=== PATIENT | male | born 1955 | race Caucasian/White ===

== ENCOUNTER 2018-08-08 23:16 | Observation (INO) | payer OTHER, SELFPAY ==
[2018-08-08 23:19] VITALS: BP 154/85; PULSE 100; RESP 22; TEMP 37.1; O2SAT 95
--- NOTE | 2018-08-08 23:29 | W.ED.GENAD ---
Discharge Plan Disposition Patient Disposition: [facility] INPATIENT Condition: Fair Discharge Details Chief Complaint: Dizzy/Sync Clinical Impression: Double vision, Vertigo Primary Care Provider: Marylin Coleman ED Provider: Brent Menon and New Rx's Prescriptions: No Action aspirin [Aspir-81] 81 MG tablet,delayed release (DR/EC) 81 mg PO DAILY RF: 0 amlodipine 5 MG tablet 5 mg PO DAILY Qty: 90 RF: 3 Medical Decision Making Patient is a 63-year-old male with history of hypertension presenting with acute onset of double vision and vertigo. He has an NIH scale of 1 based on gaze though he has full horizontal movement he has disconjugate gaze. EKG, head CT, brain and neck CTA, laboratory studies all ordered. Call placed to transfer center at [facility] to discuss with neurology. Preliminary discussion held. Waiting for CT results and call back from neurology attending and resident. Patient laboratory studies are unremarkable. Head CT read preliminary by radiology as possible left occipital infarct. CTA of the brain read as moderate to severe stenosis throughout the cerebral arteries of the brain. Internal carotid, vertebral artery, basilar artery are open. There are no occlusions or aneurysms noted. Neck CTA is normal as well. Case discussed with neurology attending, Dr. Barrios, at [facility]. He agrees with an NIH scale of 1. He also agrees with no TPA. Suspects that this will be a lacunar infarct likely in the midbrain. Recommends admission for neuro checks, MRI of the brain, echo of the heart. Does not feel that he requires emergent transfer to [facility] at this time. Patient repeat neuro exam after CT scans is unchanged. Case discussed with our hospitalist. Patient will be admitted here for further management and evaluation. Patient aware of discussion with neurology at [facility] as well as choice to admit here and complete workup. Patient is given full dose aspirin. Lab Data Lab results reviewed: Yes I reviewed the patient's lab results. ECG Data Attestation: I personally reviewed and interpreted this ECG (s) as follows: Prior ECG tracings: not available for review Interpretation: Normal sinus rhythm at a rate of 94 with normal axis and intervals and normal ST segments. HPI General Mode of arrival: ambulatory. Date/Time Provider Initiated Documentation: 08/08/18 23:27. Limitations to Documentation: no limitations. Information obtained by: patient. HPI Narrative: Patient presents to ED with onset of vertigo and double vision at 10:30 PM. He was able to drive in on his own by covering one of his eyes. With his eye covered he only sees one and has less dizziness. He denies headache. He is a daily drinker. He is a former smoker. He does have a history of hypertension. He has no other neurologic symptoms. Related Data Home Medications Medication Instructions Recorded Confirmed aspirin [Aspir 81] 81 mg PO DAILY tab 01/26/13 08/08/18 amlodipine 5 mg PO DAILY #90 tab-cap 06/02/18 08/08/18 Previous Rx's Medication Instructions Recorded amlodipine 5 mg PO DAILY #90 tab-cap 06/02/18 Allergies Allergy/AdvReac Type Severity Reaction Status Date / Time No Known Allergies Allergy Unverified 08/08/18 23:22 General Stated Complaint: Dizzy/Sync HARPREET: 3 Review of Systems Constitutional Denies chills, Denies fever(s), Denies headache(s) and Denies weakness Eyes Denies blurry vision, Reports diplopia, Denies loss of vision, Denies other visual disturbances and Denies eye pain ENT Reports vertigo, Denies otalgia, Denies facial pain, Denies headache(s), Denies neck pain and Denies sore throat Cardiovascular Denies chest pain, Denies diaphoresis, Denies syncope, Denies rapid heart rate, Denies lightheadedness, Denies palpitations and Denies dyspnea Respiratory Denies cough and Denies dyspnea Gastrointestinal Denies abdominal pain, Denies diarrhea, Denies nausea and Denies vomiting Musculoskeletal Denies abnormal gait, Denies back pain, Denies arthralgias, Denies neck pain, Denies numbness and Denies tingling Integumentary/Breasts Denies rash Neurologic Denies abnormal speech, Denies abnormal gait, Reports vertigo, Denies syncope, Denies headache(s), Denies focal weakness, Denies loss of vision, Denies numbness, Denies sensory deficit, Denies tingling and Denies weakness Endocrine Denies palpitations [facility] Family History Mother Hypertensive disorder, systemic arterial Heart disease Grandfather Personal history of malignant neoplasm Father Personal history of malignant neoplasm Medical History HTN (hypertension) (Chronic) Social History Smoking/Tobacco Use Status: Former Tobacco Use Surgical History Colonoscopy - IV Sedation (06/02/15) Skin Cancer Removal Exam Const General: cooperative, healthy appearing, comfortable and no acute distress Orientation: alert and oriented x3 HENMT Head: normocephalic and atraumatic Eyes Pupils: PERRL EOM: EOM intact bilaterally (While patient extraocular muscles are intact he has disconjugate gaze with right eye turning inward and upward.), movement deficit and No nystagmus Neck Neck: normal visual inspection and supple Carotids: bruit (versus transmitted murmur) on the right Resp Effort & Inspection: normal respiratory effort Auscultation: clear to auscultation bilaterally Cardio Rate: regular rate Rhythm: regular rhythm Heart Sounds: murmur systolic GI Palpation: soft and nontender Skin Rashes: no rashes Neuro General: alert, oriented x3, gait normal, no focal motor deficits and CN's II-XI intact bilaterally Cranial Nerves: no nystagmus and no nystagmus Cognition: normal cognition Speech: speech normal Sensory Exam: no sensory deficits noted Extrem General: normal to inspection and full ROM Course Vital Signs Temperature 98.8 F 08/08/18 23:19 Pulse 100 H 08/08/18 23:19 Respiratory Rate 22 08/08/18 23:19 Blood Pressure 154/85 H 08/08/18 23:19 Pulse Oximetry 95 08/08/18 23:19 Temperature 98.8 F 08/08/18 23:19 Temperature Source Skin 08/08/18 23:19 Pulse 100 H 08/08/18 23:19 Respiratory Rate 22 08/08/18 23:19 Respiratory Effort Non-Labored 08/08/18 23:20 Blood Pressure 154/85 H 08/08/18 23:19 Blood Pressure Position Sitting 08/08/18 23:19 Pulse Oximetry 95 08/08/18 23:19 Oxygen Delivery Method Room Air 08/08/18 23:19 Oxygen Flow Rate 0 08/08/18 23:19 Pain Level 0 08/08/18 23:19 Critical Care Time Critical Care Time: Yes Total Critical Care Time: 60 Attestation: stroke evaluation
--- NOTE | 2018-08-08 23:35 | DI.CT_ITS ---
SYMPTOM/DIAGNOSIS: DOUBLE VISION, VERTIGO NONCONTRAST HEAD CT: No priors for comparison. There is a question of loss of the ott white matter differentiation in the left occipital lobe. A developing infarct cannot be excluded. No intracranial hemorrhage, acute midline shift or mass effect is identified. The ventricles are intact. The basilar cisterns are patent. The ventricles and sulci are consistent with the patient's age. The visualized paranasal sinuses are clear. The mastoid air cells are well pneumatized. The calvarium appears intact. IMPRESSION: Subtle area of decreased attenuation in the left occipital lobe. The possibility of a developing acute infarct cannot be excluded. Follow up with an MRI or repeat CT scan of the head is recommended. CTA OF HEAD AND NECK: CT angiography was performed with multi slice acquisition and multi planar and 3D reconstruction. NECK: Routine post contrast examination was performed. The common carotid arteries are unremarkable without occlusion, dissection, aneurysm or significant stenosis. The external carotid arteries are unremarkable. No evidence of occlusion, dissection, significant stenosis or aneurysm. The internal carotid arteries are unremarkable. No evidence of significant stenosis, occlusion or aneurysm. No dissection is rubia. The vertebral arteries are patent. There is a dominant left vertebral artery. No significant stenosis, occlusion or aneurysm is seen. The lung apices are clear. Moderate degenerative changes are seen in the spine. IMPRESSION: Normal CTA of the neck. HEAD: Minimal calcium is seen in the cavernous portion of the left internal carotid artery. The internal carotid arteries show no significant stenosis, occlusion or aneurysm. The anterior cerebral arteries are patent. No occlusion or aneurysm is identified. There may be mild areas of narrowing in the distal segments of the anterior cerebral arteries. The middle cerebral arteries show no occlusion or aneurysm. There may be mild areas of narrowing in the peripheral branches. The posterior cerebral arteries show no occlusion or aneurysm. There may be mild narrowing in the peripheral branches. The vertebral arteries are unremarkable without significant stenosis , aneurysm or occlusion. There is a dominant left vertebral artery. The basilar artery is unremarkable. IMPRESSION: No evidence of occlusion or aneurysm on this examination.
[2018-08-08 23:44] VITALS: RESP 22
[2018-08-08 23:45] LABS: HCT 43.1 % (40.0-50.0); HGB 15.4 g/dL (13.5-17.5); Mean Corp. HGB Concentration 35.7 g/dL (32.0-36.0); Mean Corpuscular Hemoglobin 30.9 pg (27.0-33.0); Mean Corpuscular Volume 86.5 fL (80-95); Mean Platelet Volume 9.3 fL (8.0-11.0); Platelet Count 266 x1000/uL (130-400); RBC 4.98 m/cumm (4.50-6.00); RBC Distribution Width 12.9 % (11.8-14.1)
--- NOTE | 2018-08-08 23:46 | ED.GENADUL_ITS ---
Discharge Plan Disposition Patient Disposition: [facility] INPATIENT Condition: Fair Discharge Details Chief Complaint: Dizzy/Sync Clinical Impression: Double vision, Vertigo Primary Care Provider: Marylin Coleman ED Provider: Brent Menon and New Rx's Prescriptions: No Action aspirin [Aspir-81] 81 MG tablet,delayed release (DR/EC) 81 mg PO DAILY RF: 0 amlodipine 5 MG tablet 5 mg PO DAILY Qty: 90 RF: 3 Medical Decision Making Patient is a 63-year-old male with history of hypertension presenting with acute onset of double vision and vertigo. He has an NIH scale of 1 based on gaze though he has full horizontal movement he has disconjugate gaze. EKG, head CT, brain and neck CTA, laboratory studies all ordered. Call placed to transfer center at [facility] to discuss with neurology. Preliminary discussion held. Waiting for CT results and call back from neurology attending and resident. Patient laboratory studies are unremarkable. Head CT read preliminary by radiology as possible left occipital infarct. CTA of the brain read as moderate to severe stenosis throughout the cerebral arteries of the brain. Internal carotid, vertebral artery, basilar artery are open. There are no occlusions or aneurysms noted. Neck CTA is normal as well. Case discussed with neurology attending, Dr. Barrios, at [facility]. He agrees with an NIH scale of 1. He also agrees with no TPA. Suspects that this will be a lacunar infarct likely in the midbrain. Recommends admission for neuro checks, MRI of the brain, echo of the heart. Does not feel that he requires emergent transfer to [facility] at this time. Patient repeat neuro exam after CT scans is unchanged. Case discussed with our hospitalist. Patient will be admitted here for further management and evaluation. Patient aware of discussion with neurology at [facility] as well as choice to admit here and complete workup. Patient is given full dose aspirin. Lab Data Lab results reviewed: Yes I reviewed the patient's lab results. ECG Data Attestation: I personally reviewed and interpreted this ECG (s) as follows: Prior ECG tracings: not available for review Interpretation: Normal sinus rhythm at a rate of 94 with normal axis and intervals and normal ST segments. HPI General Mode of arrival: ambulatory . Date/Time Provider Initiated Documentation: 08/08/18 23:27 . Limitations to Documentation: no limitations . Information obtained by: patient . HPI Narrative: Patient presents to ED with onset of vertigo and double vision at 10:30 PM. He was able to drive in on his own by covering one of his eyes. With his eye covered he only sees one and has less dizziness. He denies headache. He is a daily drinker. He is a former smoker. He does have a history of hypertension. He has no other neurologic symptoms. Related Data Home Medications Medication Instructions Recorded Confirmed aspirin [Aspir 81] 81 mg PO DAILY tab 01/26/13 08/08/18 amlodipine 5 mg PO DAILY #90 tab-cap 06/02/18 08/08/18 Previous Rx's Medication Instructions Recorded amlodipine 5 mg PO DAILY #90 tab-cap 06/02/18 Allergies Allergy/AdvReac Type Severity Reaction Status Date / Time No Known Allergies Allergy Unverified 08/08/18 23:22 General Stated Complaint: Dizzy/Sync HARPREET: 3 Review of Systems Constitutional Denies chills, Denies fever(s), Denies headache(s) and Denies weakness Eyes Denies blurry vision, Reports diplopia, Denies loss of vision, Denies other visual disturbances and Denies eye pain ENT Reports vertigo, Denies otalgia, Denies facial pain, Denies headache(s), Denies neck pain and Denies sore throat Cardiovascular Denies chest pain, Denies diaphoresis, Denies syncope, Denies rapid heart rate, Denies lightheadedness, Denies palpitations and Denies dyspnea Respiratory Denies cough and Denies dyspnea Gastrointestinal Denies abdominal pain, Denies diarrhea, Denies nausea and Denies vomiting Musculoskeletal Denies abnormal gait, Denies back pain, Denies arthralgias, Denies neck pain, Denies numbness and Denies tingling Integumentary/Breasts Denies rash Neurologic Denies abnormal speech, Denies abnormal gait, Reports vertigo, Denies syncope, Denies headache(s), Denies focal weakness, Denies loss of vision, Denies numbness, Denies sensory deficit, Denies tingling and Denies weakness Endocrine Denies palpitations [facility] Family History Mother Hypertensive disorder, systemic arterial Heart disease Grandfather Personal history of malignant neoplasm Father Personal history of malignant neoplasm Medical History HTN (hypertension) (Chronic) Social History Smoking/Tobacco Use Status: Former Tobacco Use Surgical History Colonoscopy - IV Sedation (06/02/15) Skin Cancer Removal Exam Const General: cooperative, healthy appearing, comfortable and no acute distress Orientation: alert and oriented x3 HENMT Head: normocephalic and atraumatic Eyes Pupils: PERRL EOM: EOM intact bilaterally (While patient extraocular muscles are intact he has disconjugate gaze with right eye turning inward and upward.), movement deficit and No nystagmus Neck Neck: normal visual inspection and supple Carotids: bruit (versus transmitted murmur) on the right Resp Effort & Inspection: normal respiratory effort Auscultation: clear to auscultation bilaterally Cardio Rate: regular rate Rhythm: regular rhythm Heart Sounds: murmur systolic GI Palpation: soft and nontender Skin Rashes: no rashes Neuro General: alert, oriented x3, gait normal, no focal motor deficits and CN's II- XI intact bilaterally Cranial Nerves: no nystagmus and no nystagmus Cognition: normal cognition Speech: speech normal Sensory Exam: no sensory deficits noted Extrem General: normal to inspection and full ROM Course Vital Signs Temperature 98.8 F 08/08/18 23:19 Pulse 100 H 08/08/18 23:19 Respiratory Rate 22 08/08/18 23:19 Blood Pressure 154/85 H 08/08/18 23:19 Pulse Oximetry 95 08/08/18 23:19 Temperature 98.8 F 08/08/18 23:19 Temperature Source Skin 08/08/18 23:19 Pulse 100 H 08/08/18 23:19 Respiratory Rate 22 08/08/18 23:19 Respiratory Effort Non-Labored 08/08/18 23:20 Blood Pressure 154/85 H 08/08/18 23:19 Blood Pressure Position Sitting 08/08/18 23:19 Pulse Oximetry 95 08/08/18 23:19 Oxygen Delivery Method Room Air 08/08/18 23:19 Oxygen Flow Rate 0 08/08/18 23:19 Pain Level 0 08/08/18 23:19 Critical Care Time Critical Care Time: Yes Total Critical Care Time: 60 Attestation: stroke evaluation
[2018-08-08 23:54] LABS: BUN 23 mg/dL (7-18); CREATININE 1.19 mg/dL (0.70-1.30); Calcium 8.8 mg/dL (8.5-10.1); Chloride 104 mmol/L (98-107); Glucose 152 mg/dL (70-100); Potassium 3.2 mmol/L (3.5-5.1); Sodium 141 mmol/L (136-145)
[2018-08-09] VITALS (32 sets, daily range): BP systolic 129–158; BP diastolic 77–98; PULSE 58–99; RESP 11–28; TEMP 36.5–37.1; O2SAT 92–98
[2018-08-09 00:02] LABS: ETHANOL BLOOD < 3.0 mg/dL (<3)
[2018-08-09] MEDS: Normal Saline Flush 10 ML SYR IVP (00:05)
[2018-08-09] MEDS: Normal Saline 1,000 ML 125 ML IV (00:08)
[2018-08-09 00:14] LABS: PTT Activated 22.3 sec (21.0-31.4); Prothrombin Time 9.6 sec (9.3-10.8)
--- NOTE | 2018-08-09 00:20 | DI.VRAD_ITS ---
EXAM: CT Head Without Intravenous Contrast EXAM DATE/TIME: 08/08/2018 11:38 PM CLINICAL HISTORY: 63 years old, male; Signs and symptoms; Visual disturbance; Patient HX: Double vision TECHNIQUE: Axial computed tomography images of the head/brain without intravenous contrast. All CT scans at this facility use at least one of these dose optimization techniques: automated exposure control; mA and/or kV adjustment per patient size (includes targeted exams where dose is matched to clinical indication); or iterative reconstruction. Coronal and sagittal reformatted images were created and reviewed. COMPARISON: No relevant prior studies available. FINDINGS: Brain: There is loss of ott-white differentiation in the left occipital lobe concerning for developing acute infarct. Age no hemorrhage. Ventricles: Normal. No ventriculomegaly. Bones/joints: Normal. No acute fracture. Sinuses: Normal as visualized. No acute sinusitis. Mastoid air cells: Normal as visualized. No mastoid effusion. Soft tissues: Normal. IMPRESSION: Loss of ott-white differentiation in the left occipital lobe concerning for developing acute infarct. Dictated and Authenticated by: Gamaliel Nunes MD. Ordering:WAYNE ATWOOD MD
[2018-08-09] MEDS: Omnipaque 350 MG/ML 100 ML BTL IJ (00:39)
--- NOTE | 2018-08-09 00:43 | DI.VRAD_ITS ---
EXAM: CT Angiography Head With Intravenous Contrast CLINICAL HISTORY: 63 years old, male; Signs and symptoms; Visual disturbance; Other visual defect; Patient HX: Double vision, vertigo TECHNIQUE: Axial computed tomographic angiography images of the head with intravenous contrast using CT angiography protocol. All CT scans at this facility use at least one of these dose optimization techniques: automated exposure control; mA and/or kV adjustment per patient size (includes targeted exams where dose is matched to clinical indication); or iterative reconstruction. MIP reconstructed images were created and reviewed. CONTRAST: 85 mL of OMnipaque 350 administered intravenously. COMPARISON: No relevant prior studies available. FINDINGS: Right internal carotid artery: No acute findings. Intracranial segment is patent with no significant stenosis. No aneurysm. Right anterior cerebral artery: Multifocal moderate stenosis of the A2, A3 segments of the bilateral anterior cerebral arteries. No aneurysm. No occlusion. Right middle cerebral artery: Multifocal moderate stenosis of the M1 and M2, andM3 and M4 segments of bilateral middle cerebral arteries. No aneurysm. No occlusion Right posterior cerebral artery: Multifocal severe stenosis of bilateral posterior cerebral artery in the P3 and P4 segments. Moderate stenosis of the P2 segments of bilateral posterior cerebral arteries. No aneurysm. No occlusion. Right vertebral artery: Unremarkable as visualized. Left internal carotid artery: No acute findings. Intracranial segment is patent with no significant stenosis. No aneurysm. Left anterior cerebral artery: See above. Left middle cerebral artery: See above. Left posterior cerebral artery: See above. Left vertebral artery: Unremarkable as visualized. Basilar artery: Unremarkable. No occlusion or significant stenosis. No aneurysm. IMPRESSION: Multifocal atherosclerotic stenosis of the intracranial arteries as described above. EXAM: CT Angiography Neck With Intravenous Contrast CLINICAL HISTORY: 63 years old, male; Signs and symptoms; Visual disturbance; Other visual defect; Patient HX: Double vision, vertigo TECHNIQUE: Axial computed tomographic angiography images of the neck with intravenous contrast using CT angiography protocol. All CT scans at this facility use at least one of these dose optimization techniques: automated exposure control; mA and/or kV adjustment per patient size (includes targeted exams where dose is matched to clinical indication); or iterative reconstruction. MIP reconstructed images were created and reviewed. CONTRAST: 85 mL of OMnipaque 350 administered intravenously. 85 mL of OMnipaque 350 administered intravenously. COMPARISON: CT HEAD FOR STROKE PROTOCOL 08/08/2018 11:39 PM FINDINGS: VASCULATURE: Right common carotid artery: Unremarkable. No significant stenosis. No dissection or occlusion. Right internal carotid artery: Unremarkable. Extracranial segment is patent with no significant stenosis. No dissection or occlusion. Right external carotid artery: Unremarkable. No occlusion. Right vertebral artery: Unremarkable. No significant stenosis. No dissection or occlusion. Left common carotid artery: Unremarkable. No significant stenosis. No dissection or occlusion. Left internal carotid artery: Unremarkable. Extracranial segment is patent with no significant stenosis. No dissection or occlusion. Left external carotid artery: Unremarkable. No occlusion. Left vertebral artery: Unremarkable. No significant stenosis. No dissection or occlusion. NECK: Bones/joints: No acute fracture. No dislocation. Soft tissues: Unremarkable as visualized. No mass. CAROTID STENOSIS REFERENCE USING NASCET CRITERIA: % ICA stenosis = (1 - narrowest ICA diameter/diameter of distal cervical ICA) x 100. Mild - <50% stenosis. Moderate - 50-69% stenosis. Severe - 70-94% stenosis. Near occlusion - 95-99% stenosis. Occluded - 100% stenosis. IMPRESSION: Normal neck CTA. Dictated and Authenticated by: Gamaliel Nunes MD. Ordering:WAYNE ATWOOD MD
[2018-08-09] MEDS: Aspirin 81 MG CHEW 324 MG CH (01:28)
--- NOTE | 2018-08-09 06:05 | W.PM.HP.N ---
Date of service: 08/09/18 Time of Service: 06:05 Assessment and Plan (1) TIA (transient ischemic attack): Current visit: Yes Status: Acute The intersection of true diplopia with vertigo stamps this is almost certainly a neurological event. The hui would be the most likely location to produce this pair of symptoms, possibly also alternatively the midbrain. Regardless it would be almost certainly a brainstem event. Full dose aspirin should be continued, hypertension controlled (patient has not yet had his morning dose of amlodipine, says that his blood pressure is usually between 110 and 130 systolic). Would also advise statin regardless of cholesterol profile. I have also advised he may wish to look into a low-fat diet. As far as further workup goes he has also already had the angiogram. There has been no atrial fibrillation on monitor but it would be best to have 2-week zio patch.. Would also advise MRI. Low-grade hypokalemia is noted, uncertain etiology for now I would simply replace and recheck. If this should by chance proved to be persistent would consider, in the setting of hypertension, a workup for primary hyperaldosteronism. History of Present Illness Chief Complaint: Diplopia Narrative: Patient is a 63-year-old male with history of hypertension. While laying awake in bed earlier this evening he noticed he was having double vision (vertical) along with a sense of nonvertiginous disequilibrium. He reports that the diplopia resolved if he covered one eye or the other. He came to the emergency room. CT of the head was read out as possibly showing early left occipital infarct, though the verbal report I have from the emergency room is that the consulting neurologist did not agree with this interpretation. Angiogram showed diffuse this stenoses but no occlusion. Patient was given full dose aspirin and admitted for further evaluation. Overnight he reports that his symptoms have entirely entirely resolved. Risk factors for cardiovascular disease are hypertension. He smoked many years ago. There is no history of diabetes and he reports normal cholesterol. Review of Systems Review of Systems All systems reviewed & are unremarkable except as noted in HPI and below PFSH Family History Mother Hypertensive disorder, systemic arterial Heart disease Grandfather Personal history of malignant neoplasm Father Personal history of malignant neoplasm Medical History HTN (hypertension) (Chronic) Social History Smoking/Tobacco Use Status: Former Tobacco Use Surgical History Colonoscopy - IV Sedation (06/02/15) Skin Cancer Removal Meds Home Medications Medication Instructions Recorded Confirmed Type aspirin [Aspir 81] 81 mg PO DAILY tab 01/26/13 08/08/18 History amlodipine 5 mg PO DAILY #90 tab-cap 06/02/18 08/08/18 Rx Allergies Allergy/AdvReac Type Severity Reaction Status Date / Time No Known Allergies Allergy Unverified 08/08/18 23:22 Exam Narrative Exam Narrative: Blood pressure 145/94 pulse 68 respirations 16 temp 36.5 HEENT shows no signs of head trauma. Neck is supple without carotid bruits. Lungs are clear. Heart regular rate and rhythm without murmurs rubs or gallops. Abdomen is soft and nontender. and rectal exams are deferred. Extremities without edema, pulses are 2+ and equal neurological exam shows patient is alert and oriented x3. Pupils are approximately 4 mm and reactive. Extra extraocular movements are fully intact and there is no subjective diplopia during maneuvers. There is no facial asymmetry. Tongue protrudes in the middle line. Strength is 5/5 throughout. Toes are downgoing. Results Labs : 08/08/18 23:40 08/08/18 23:40 Laboratory Results - last 24 hr 08/08/18 08/08/18 08/08/18 23:40 23:40 23:40 WBC 7.80 RBC 4.98 Hgb 15.4 Hct 43.1 MCV 86.5 MCH 30.9 MCHC 35.7 RDW 12.9 Plt Count 266 MPV 9.3 PT 9.6 INR 1.0 APTT 22.3 Sodium 141 Potassium 3.2 L Chloride 104 Carbon Dioxide 26.0 Anion Gap 11.0 BUN 23 H Creatinine 1.19 Estimated GFR/1.73 m2 >= 60.00 Glucose 152 H Calcium 8.8 Magnesium 2.0 Ethyl Alcohol < 3.0 Last Vital Signs Temp 36.5 C 08/09/18 06:04 Pulse 68 08/09/18 06:04 Resp 16 08/09/18 06:04 BP 145/94 H 08/09/18 06:04 Pulse Ox 96 10/10/18 06:04
[2018-08-09 07:11] LABS: Glucose 118 mg/dL (70-100)
[2018-08-09] MEDS: amLODIPine 5 MG TAB PO (08:39)
[2018-08-09] MEDS: Aspirin 325 MG TAB PO (08:39)
--- NOTE | 2018-08-09 09:15 | PDOC.CMIN ---
- If Service Date Differs Date of service: 08/09/18 Time of Service: 09:15 Care Management Initial Assess REASON FOR HOSPITALIZATION:: TIA PAST MEDICAL HISTORY/PAST SURGICAL HISTORY:: HTN, Colonoscopy, Skin cancer removal PREVIOUS FUNCTIONAL STATUS/SOCIAL/FAMILY SUPPORTS:: Nikko resides with his Lucy in [facility] whom he has been to for 31 years. Jb states that he has four children, one whom resides locally (Kiya). Jb continues to work locally and is independent at baseline, manages ADL's and drives CURRENT FUNCTIONAL STATUS:: Currently Nikko is lying in bed when this principal technical writer visits. His daughter Kiya is in the room with him, both are pleasant and open to discussion. ADVANCE DIRECTIVES:: On file - Lucy Malik is agent, Kiya Hair is alternate Has patient been provided with information about the portal?: Yes Did the patient sign up for the portal?: No CODE STATUS:: Full Code INSURANCE COVERAGE / FINANCIAL ISSUES:: [employer] CURRENT HOME/COMMUNITY SERVICES/EQUIPMENT:: Currently Nikko has no services in the community. He does have a BP machine which he uses at times. PRIMARY CARE PHYSICIAN:: Marylin avalos POTENTIAL DISCHARGE NEEDS:: F/U appointment with PCP PATIENT/FAMILY EDUCATION NEEDS:: Review DC instructions, any limitations, and ongoing DC planning discussion. Discuss Ask Me Three ANTICIPATED BARRIERS TO DISCHARGE:: None identified at this time TRANSPORTATION:: Via private vehicle with family PLAN:: Nikko to return home with no anticipated services, he will F/U with PCP and plan of care as prescribed. Nikko's family will transport when ready.
--- NOTE | 2018-08-09 09:19 | INITIAL_ITS ---
- If Service Date Differs Date of service: 08/09/18 Time of Service: 09:15 Care Management Initial Assess REASON FOR HOSPITALIZATION:: TIA PAST MEDICAL HISTORY/PAST SURGICAL HISTORY:: HTN, Colonoscopy, Skin cancer removal PREVIOUS FUNCTIONAL STATUS/SOCIAL/FAMILY SUPPORTS:: Nikko resides with his Lucy in [facility] whom he has been to for 31 years. Jb states that he has four children, one whom resides locally (Kiya). Jb continues to work locally and is independent at baseline, manages ADL's and drives CURRENT FUNCTIONAL STATUS:: Currently Nikko is lying in bed when this telegraphic typewriter repairer visits. His daughter Kiya is in the room with him, both are pleasant and open to discussion. ADVANCE DIRECTIVES:: On file - Lucy Malik is agent, Kiya Hair is alternate Has patient been provided with information about the portal?: Yes Did the patient sign up for the portal?: No CODE STATUS:: Full Code INSURANCE COVERAGE / FINANCIAL ISSUES:: [employer] CURRENT HOME/COMMUNITY SERVICES/EQUIPMENT:: Currently Nikko has no services in the community. He does have a BP machine which he uses at times. PRIMARY CARE PHYSICIAN:: Marylin avalos POTENTIAL DISCHARGE NEEDS:: F/U appointment with PCP PATIENT/FAMILY EDUCATION NEEDS:: Review DC instructions, any limitations, and ongoing DC planning discussion. Discuss Ask Me Three ANTICIPATED BARRIERS TO DISCHARGE:: None identified at this time TRANSPORTATION:: Via private vehicle with family PLAN:: Nikko to return home with no anticipated services, he will F/U with PCP and plan of care as prescribed. Nikko's family will transport when ready.
[2018-08-09] MEDS: Potassium Chloride 20 MEQ TABCR 40 MEQ PO (11:54)
[2018-08-09] MEDS: Thiamine 100 MG TAB PO (11:54)
--- NOTE | 2018-08-09 12:22 | PHARADMIT ---
Admission Pharmacy Clinical Review VERIGO, DOUBLE VISION Code Status Full Code Current Weight Wgt- 83.9 kg Renally Cleared and Narrow Therapeutic Index Meds CrCl~ 65 mL/min Meds-OK QTc Value / Action Taken NA BP Control, Fever BP-129/80 Tmax- 37.1C Electrolytes reviewed Na- 141 K+3.2 Mag- 2.0 DVT Prophylaxis Plavix Opiate Usage / Scheduled Bowel Regimen Ordered No No Plt/SCr for Heparin / Enoxaparin Plts- 266 SCr- 1.19 INR for Warfarin inr- 1.0 H/H stable, WBC/Bands H&H- 15.4/43.1 WBC- 7.80 Antibiotic appropriateness none none Cultures and Sensitivities none Surgical ABX d/c within 24 hr NA DM control / Insulin Dosing BG- 118 Heart Failure (Check EF%) (RUPALI's, B-Block, Diuretics) Norvasc, IV to PO Switch No Home Meds Reviewed Yes Home Meds Not Ordered ASA Comments
[2018-08-09] MEDS: Clopidogrel 75 MG TAB PO (12:26)
--- NOTE | 2018-08-09 12:36 | MERGE_ITS ---
*[facility]* *[facility]* [address] [place] [address] Date of study: 08/09/2018 Transthoracic Echocardiography M-mode, complete 2D, complete spectral Doppler, and color Doppler *STUDY CONCLUSIONS* Impressions: No cardiac source of emboli was identified. Summary: 1. Left ventricle: The cavity size was normal. There was mild focal basal hypertrophy of the septum. Systolic function was hyperdynamic. The estimated ejection fraction was 65-70%. Wall motion was normal; there were no regional wall motion abnormalities. The outflow tract showed a very mild gradient, 11/6 mmHg (peak /mean). 2. Mitral valve: There was mild regurgitation. 3. Right ventricle: The cavity size was at the upper limits of normal. Wall thickness was normal. Systolic function was normal. 4. Pulmonic valve: Peak gradient (S): 4mm Hg. 5. Pulmonary arteries: Pulmonary systolic pressure was mildly increased. PA peak pressure: 49mm Hg (S). *PATIENT PRESENTATION* Height: 175.3cm ((69in) ) S/D Pressure: 134 / 83 Weight: 83.9kg ((184.6lb) ) BSA: 2.04m^2 Test start time: 12:40 PM. Test stop time: 01:30 PM. PERFORMING Unknown PERFORMING [facility] [employer] SUPERVISOR RT Elfego (R)(CT), [facility] ORDERING Naty Rich Yelena A *PROCEDURE DATA* Procedure information: The patient was identified by two identifiers. This study was interpreted by [facility]. Pertinent images and digital data are archived for permanent storage and are available for subsequent review. No prior study was available for comparison. Study status: Routine. Transthoracic echocardiography. M-mode, complete 2D, complete spectral Doppler, and color Doppler. A Transthoracic Echocardiogram was performed. Scanning was performed from the parasternal, apical, subcostal, and suprasternal notch acoustic windows. Images were obtained using an [id number] cardiac ultrasound machine. Image quality was fair. The study was technically limited due to patient inability to follow directions. Study completion: The patient tolerated the procedure well. History: PMH: TIA. *CARDIAC ANATOMY* Left ventricle: The cavity size was normal. There was mild focal basal hypertrophy of the septum. Systolic function was hyperdynamic. The estimated ejection fraction was 65-70%. Wall motion was normal; there were no regional wall motion abnormalities. The outflow tract showed a very mild gradient, 11/6 mmHg (peak /mean). The study is not technically sufficient to allow evaluation of LV diastolic function. Aortic valve: Trileaflet; mildly thickened leaflets. Mobility was not restricted. Doppler: Transvalvular velocity was within the normal range. There was no stenosis. There was no significant regurgitation. VTI ratio of LVOT to aortic valve: 0.85. Valve area (VTI): 2.5cm^2. Indexed valve area (VTI): 1.3cm^2/m^2. Peak velocity ratio of LVOT to aortic valve: 0.84. Valve area (Vmax): 2.5cm^2. Indexed valve area (Vmax): 1.2cm^2/m^2. Mean velocity ratio of LVOT to aortic valve: 0.88. Valve area (Vmean): 2.7cm^2. Indexed valve area (Vmean): 1.3cm^2/m^2. Mean gradient (S): 7.4mm Hg. Peak gradient (S): 15mm Hg. Aorta: Aortic root: The aortic root was normal in size. Ascending aorta: The ascending aorta was normal in size. Mitral valve: Mildly thickened leaflets. Mobility was not restricted. Doppler: Transvalvular velocity was within the normal range. There was no evidence for stenosis. There was mild regurgitation. Valve area by pressure half-time: 3.1cm^2. Indexed valve area by pressure half-time: 1.5cm^2/m^2. Peak gradient (D): 2.8mm Hg. Left atrium: The atrium was normal in size. Right ventricle: The cavity size was at the upper limits of normal. Wall thickness was normal. Systolic function was normal. Pulmonic valve: Poorly visualized. Doppler: Transvalvular velocity was within the normal range. There was no evidence for stenosis. There was no significant regurgitation. Peak gradient (S): 4mm Hg. Tricuspid valve: Structurally normal valve. Doppler: Transvalvular velocity was within the normal range. There was no evidence for stenosis. There was trivial regurgitation. Pulmonary artery: Poorly visualized. Pulmonary systolic pressure was mildly increased. Right atrium: The atrium was normal in size. Pericardium: There was no pericardial effusion. Systemic veins: Inferior vena cava: Well visualized. The vessel was patent and normal in size. The respirophasic diameter changes were in the normal range (greater than or equal to 50%), consistent with normal central venous pressure. Baseline ECG: Normal sinus rhythm. Measurements Left ventricle Value Reference LV ID, ED, PLAX 4.6 cm 3.5 - 6.0 LV ID, ES, PLAX 2.6 cm 2.1 - 4.0 LV PW thickness, ED, PLAX 0.7 cm LV end-diastolic volume, 1-p A2C 87 ml LV ejection fraction, 1-p A2C 78 % LV end-diastolic volume, 1-p A4C 57 ml LV ejection fraction, 1-p A4C 60 % LV e', lateral 0.073 m/sec LV E/e', lateral 12 LV e', medial 0.067 m/sec LV E/e', medial 12 LV e', average 0.07 m/sec LV E/e', average 12 Ventricular septum Value Reference IVS thickness, ED, PLAX 0.6 cm LVOT Value Reference LVOT ID, A-P 2.0 cm LVOT area 3 cm^2 LVOT peak velocity, S 1.63 m/sec LVOT mean velocity, S 1.12 m/sec LVOT VTI, S 28.8 cm LVOT peak gradient, S 10.6 mm Hg LVOT mean gradient, S 5.6 mm Hg Stroke volume (SV), LVOT DP 87 ml Stroke index (SV/bsa), LVOT DP 43 ml/m^2 Aortic valve Value Reference Aortic valve peak velocity, S 1.9 m/sec Aortic valve mean velocity, S 1.27 m/sec Aortic valve VTI, S 34.0 cm Aortic mean gradient, S 7.4 mm Hg Aortic peak gradient, S 15 mm Hg VTI ratio, LVOT/AV 0.85 Aortic valve area, VTI 2.5 cm^2 Velocity ratio, peak, LVOT/AV 0.84 Aortic valve area, peak velocity 2.5 cm^2 Velocity ratio, mean, LVOT/AV 0.88 Aortic valve area, mean velocity 2.7 cm^2 Aortic valve area/bsa, mean velocity 1.3 cm^2/m^2 Aorta Value Reference Aortic root ID, ED 3.0 cm Ascending aorta ID, A-P, S 3.1 cm RVOT Value Reference RVOT VTI, S 20.0 cm Left atrium Value Reference LA ID, A-P, ES 4.3 cm LA ID/bsa, A-P 2.1 cm/m^2 <=2.2 LA area, ES, A4C 14.1 cm^2 8.8 - 23.4 LA area, ES, A2C 16 cm^2 LA volume/bsa, ES, 1-p A4C 18 ml/m^2 LA volume, ES, 2-p 38 ml LA volume/bsa, ES, 2-p 19 ml/m^2 LA/aortic root ratio 1.45 Mitral valve Value Reference Mitral E-wave peak velocity 0.84 m/sec Mitral A-wave peak velocity 0.81 m/sec Mitral deceleration time (H) 246 ms 150 - 230 Mitral pressure half-time 71 ms Mitral peak gradient, D 2.8 mm Hg Mitral E/A ratio, peak 1.04 Mitral valve area, PHT, DP 3.1 cm^2 Pulmonary arteries Value Reference PA pressure, S, DP (H) 49 mm Hg <=30 Tricuspid valve Value Reference Tricuspid regurg peak velocity 3.3 m/sec Tricuspid peak RV-RA gradient 42.6 mm Hg Right atrium Value Reference RA area, ES, A4C 11.7 cm^2 8.3 - 19.5 Systemic veins Value Reference Estimated CVP 10 mm Hg Right ventricle Value Reference RV pressure, S, DP (H) 53 mm Hg <=30 Pulmonic valve Value Reference Pulmonic peak gradient, S 4 mm Hg Legend: (L) and (H) robbin values outside specified reference range. I have personally reviewed the images and have reviewed and edited the reported findings. Electronically signed by Santosh Smalls 08/09/2018 17:53
--- NOTE | 2018-08-09 14:05 | DI.MRI_ITS ---
SYMPTOM/DIAGNOSIS: TIA, BLURRED VISION BRAIN MRI: Routine noncontrast examination was performed. Comparison CT scan is from the day prior. The ventricles and sulci are consistent with the patient's age. There is normal signal in the brain parenchyma. The diffusion weighted images have a normal appearance. No intracranial hemorrhage is present. The ventricles are intact. The basilar cisterns are patent. There is no acute midline shift or mass effect. There is a normal flow void seen in the [place]. The visualized paranasal sinuses are clear. IMPRESSION: No evidence of an intracranial mass, hemorrhage or acute infarct.
--- NOTE | 2018-08-09 16:27 | NCONE_ITS ---
Date of service: 08/09/18 Assessment and Plan (1) TIA (transient ischemic attack): Start date: 08/09/18 Current visit: No Status: Acute Mr. Malik is a 63, year-old right handed man with a history of hypertension who was admitted for transient binocular vertical>horizontal diplopia. His clinical symptoms seem most consistent with a vascular etiology. 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 Recs as below. Otherwise, on exam he had hyperreflexia with a +Thurston's concerning for an UMN process. He does not have any clinical symptoms to suggest a myelopathy. I recommend repeat exam/reflex testing at follow-up at which time we can pursue c- spine/t-spine imaging as needed. Recs: Continue ASA 81mg daily + Plavix 75mg daily x3 months Reduce atorvastatin 40mg HS Extended cardiac monitoring (Zio patch is fine) Refer for a sleep study Needs an updated lipid panel and A1c F/up in Neurology in 4-6 weeks with repeat neuroexam/reflex testing (2) Hyperreflexia: Current visit: No Status: Acute History of Present Illness Chief Complaint: TIA Narrative: Handedness: right. HPI: On 08/08/18 while laying in bed at approximately 1030pm, Mr. Malik developed acute onset binocular diplopia. The images were mainly vertical from each other with a slight horizontal component. He had brief vertigo associated with his symptoms that quickly resolved. He was able to drive himself to the ED where he was admitted overnight for concerns of TIA. His diplopia resolved after 4-5 hours. He had no associated speech changes, numbness, or weakness. He has a history of hypertension and takes a daily ASA at home. He has significant risk factors for KOFI and has been witnessed to be apnic by his . Otherwise, he has a history of neck stiffness. He denies any bowel/ bladder changes, imbalance, or other myelopathic symptoms. He underwent a brain MRI which I was able to review. There were no acute processes. TTE showed a normal EF, no wall motion abnormalities, and normal sized LA. He had a CTA head and neck which i was also able to review. There were no areas of significant stenosis, though he does have evidence of atherosclerosis. Further, his posterior circulation is very small in my opinion. His most recent LDL was in January and was 102. He has been started on atorvastatin and Plavix in addition to asa. Consults Requesting physician: Naty Rich Review of Systems Review of Systems All systems reviewed & are unremarkable except as noted in HPI and below PFSH Family History Mother Hypertensive disorder, systemic arterial Heart disease Grandfather Personal history of malignant neoplasm Father Personal history of malignant neoplasm Medical History HTN (hypertension) (Chronic) Social History Smoking/Tobacco Use Status: Former Tobacco Use Surgical History Colonoscopy - IV Sedation (06/02/15) Skin Cancer Removal Visit Medication and Allergies Active Medications Generic Name Dose Route Start Last Admin Trade Name Freq PRN Reason Stop Dose Admin Amlodipine Besylate 5 mg 08/09/18 08:30 08/09/18 08:39 Norvasc PO 5 mg DAILY PETRONA Administration Aspirin 81 mg 08/10/18 08:30 PO DAILY PETRONA Atorvastatin Calcium 80 mg 08/09/18 20:00 Lipitor PO QPM PETRONA Clopidogrel Bisulfate 75 mg 08/10/18 08:30 Plavix PO DAILY PETRONA Sodium Chloride 1,000 mls @ 125 mls/hr 08/08/18 23:45 08/09/18 00:08 Saline 1000ml Bag IV 125 mls/hr INFUSION PETRONA Administration IV Miscellaneous Supplies 1 each 08/08/18 23:45 IV DIRECTED PETRONA Sodium Chloride 0 ml 08/08/18 23:35 08/09/18 00:05 Saline Flush 10 Ml Syringe IVP 10 ml PRN PRN Administration Thiamine HCl 100 mg 08/09/18 08:30 08/09/18 11:54 PO 100 mg DAILY PETRONA Administration Allergies No Known Allergies Allergy (Unverified 08/08/18 23:22) Exam Narrative Exam Narrative: Physical Exam: Gen: Patient of apparent stated age, NAD Head and face: no facial or cranial abnormalities Neck: Supple, no meningismus, no occipital tenderness CV: + S1, S2, RRR, no murmur Resp: CTA B/L Abd: soft, nontender, nondistended Ext: No edema. No clubbing or cyanosis. No bony deformity. Neuro Exam: Language: fluency, naming, repetition, and comprehension intact; Mental Status: AAOx3, current events intact, fund of knowledge intact; Speech: no dysarthria Cranial nerves: Funduscopy: not performed CN II: visual garza intact CN III, IV, : extraocular movements intact, no nystagmus, pupils symmetric and reactive to light CN V: face sensation intact to LT and PP CN VII: no facial asymmetry noted CN VIII: hearing intact bilaterally CN IX, X: palate rises symmetrically CN XI: trapezius/SCM 5/5 bilaterally CN XII: protrudes tongue symmetrically Sensory: intact to LT, PP, vibration, and joint position in all extremities, absent Romberg Motor: bulk and tone intact. Fine motor movements intact bilaterally. No pronator drift. Strength 5/5 throughout including the deltoids, biceps, triceps , wrist extensors, hip flexors, knee flexors, knee extensors, ankle flexors, and ankle extensors. Reflexes: 2+ at the biceps, triceps, and brachioradialis; brisk 3+ at the patella bilaterally with crossed adductors; brisk at the achilles tendons bilaterally; 2 beats of clonus on the right; +Thurston on the left; toes down going bilaterally; Coordination: FTN and HTS intact bilaterally Gait: deferred Results Last Vital Signs Temp 37.1 C 08/09/18 11:25 Pulse 80 08/09/18 15:20 Resp 18 08/09/18 11:25 BP 129/80 08/09/18 11:25 Pulse Ox 97 08/09/18 11:25 Labs : 08/08/18 23:40 08/09/18 06:45 Laboratory Results - last 24 hr 08/08/18 08/08/18 08/08/18 23:40 23:40 23:40 WBC 7.80 RBC 4.98 Hgb 15.4 Hct 43.1 MCV 86.5 MCH 30.9 MCHC 35.7 RDW 12.9 Plt Count 266 MPV 9.3 PT 9.6 INR 1.0 APTT 22.3 Sodium 141 Potassium 3.2 L Chloride 104 Carbon Dioxide 26.0 Anion Gap 11.0 BUN 23 H Creatinine 1.19 Estimated GFR/1.73 m2 >= 60.00 Glucose 152 H Calcium 8.8 Magnesium 2.0 Ethyl Alcohol < 3.0 08/09/18 06:45 WBC RBC Hgb Hct MCV MCH MCHC RDW Plt Count MPV PT INR APTT Sodium Potassium Chloride Carbon Dioxide Anion Gap BUN Creatinine Estimated GFR/1.73 m2 Glucose 118 H Calcium Magnesium Ethyl Alcohol Ambulatory Orders Medication Instructions Recorded aspirin [Aspir 81] 81 mg PO DAILY tab 01/26/13 amlodipine 5 mg PO DAILY #90 tab-cap 06/02/18 atorvastatin 40 mg PO HS #30 tab 08/09/18 clopidogrel [Plavix] 75 mg PO DAILY #30 tab 08/09/18
--- NOTE | 2018-08-09 16:47 | W.PM.DS.N ---
Date of service: 08/09/18 Time of Service: 16:47 DS: Diagnosis Discharge Diagnosis (1) TIA (transient ischemic attack): Status: Acute (2) Hypertension: Status: Chronic Discharge Plan Disposition Patient Disposition: HOME Condition: Good Discharge Details Chief Complaint: Dizzy/Sync Reason For Visit: VERTIGO; DOUBLE VISION Admit Date/Time: 08/09/18 01:21 Admit Provider: Darren Roman Attending Provider: Darren Roman Primary Care Provider: Marylin Coleman [facility] Hospital Course: Mr Malik is a 63 year old male who has a history of hypertension who presented to the hospital complaining of vertical diplopia, vertigo. He was observed at the hospital for what is felt to be a TIA, as the symptoms resolved after about 5 hours. His workup included a CT of the head, CTA of the head and neck, MRI of the brain, and echocardiogram. CT of the head revealed a subtle area of attenuation in left occipital lobe, but this was not seen on the MRI which was negative. CTA was also negative. His telemetry was unremarkable. Plavix was added to the baby aspirin, on which he is to remain for 3 months, and the patient was initiated on a statin on this admission. He is felt to be stable to be discharged home with a [facility] monitor, follow up with PCP and neurology. He will also need an outpatient sleep study. Home Meds and New Rx's Prescriptions: New clopidogrel [Plavix] 75 mg Tablet 75 mg PO DAILY Qty: 30 RF: 0 atorvastatin 40 mg tablet 40 mg PO HS Qty: 30 RF: 0 Continue aspirin [Aspir-81] 81 MG tablet,delayed release (DR/EC) 81 mg PO DAILY RF: 0 amlodipine 5 MG tablet 5 mg PO DAILY Qty: 90 RF: 3 Discharge Instructions Instructions: Atorvastatin (By mouth), Clopidogrel (By mouth), Transient Ischemic Attack (DC) Additional Instructions: Return to the hospital with any new neurological symptoms, chest pain, shortness of breath, or bleeding. You will need a sleep study as outpatient. Follow up with your PCP in 5-7 days. Follow up with Neurology (Dr Crum) in 4-6 weeks. Stand Alone Forms: Nursing Discharge Form Referrals: Merlene Crum MD [ [facility] STAFF PHYSICIAN] - Marylin Coleman NP [Primary Care Provider] - Activity:: Activity as Tolerated Equipment/Supplies:: No Equipment Needed Diet:: Low Sodium Discharge Orders Discharge Orders: Discharge Order (Routine); Ordered 08/09/18 Ordered By: Naty Rich Exam Narrative Exam Narrative: General: A&Ox3, no focal deficits HEENT: EOMI, MMM, PERRLA Heart: RRR, no m/r/g Lungs: CTAB Abdomen: Soft, nontender, nondistended Extremities: no e/c/c BLE's DS: Data Vitals/I&O Vitals and I&O: Vital Signs Temperature 36.8 C 08/09/18 16:28 Temperature Source Tympanic 08/09/18 16:28 Pulse 69 08/09/18 16:28 Pulse Rhythm Regular 08/09/18 09:39 Pulse 89 08/09/18 01:50 Respiratory Rate 18 08/09/18 16:28 Respiratory Effort Non-Labored 08/09/18 09:39 Respiratory Depth Normal 08/09/18 09:39 Respiratory Pattern Normal 08/09/18 09:39 Blood Pressure 138/84 08/09/18 16:28 Blood Pressure Mean 93 08/09/18 01:45 Blood Pressure Position Sitting 08/08/18 23:19 Pulse Oximetry 98 08/09/18 16:28 Oxygen Delivery Method Room Air 08/09/18 16:28 Oxygen Flow Rate 0 08/09/18 16:28 Pain Level 0 08/09/18 06:04 Intake & Output 08/08/18 08/09/18 08/09/18 23:59 11:59 23:59 Intake Total 625 / 625 0 / 0 Output Total 1000 / 1000 Balance -375 / -375 0 / 0 Weight 83.915 kg 83.915 kg Intake: IV 125 / 125 Oral 500 / 500 0 / 0 Output: Urine 1000 / 1000 Other: Urine Color Yellow Urine Appearance Clear Urine Odor Normal Comment urine not assessed by RN; pt voiding ad maritza in toilet Voiding Methods Urinal Toilet Completed studies during hospitalization [Text1]: Brain CT: Subtle area of decreased attenuation in the left occipital lobe. The possibility of a developing acute infarct cannot be excluded. Follow up with an MRI or repeat CT scan of the head is recommended. CTA head/Neck: Normal CTA neck. No evidence of occlusion or aneurysm on this examination. MRI: No evidence of an intracranial mass, hemorrhage or acute infarct. Echo: done; results pending Labs on day of discharge: Labs from last 24 hours 08/09/18 08/08/18 08/08/18 06:45 23:40 23:40 WBC 7.80 RBC 4.98 Hgb 15.4 Hct 43.1 MCV 86.5 MCH 30.9 MCHC 35.7 RDW 12.9 Plt Count 266 MPV 9.3 PT 9.6 INR 1.0 APTT 22.3 Sodium Potassium Chloride Carbon Dioxide Anion Gap BUN Creatinine Estimated GFR/1.73 m2 Glucose 118 H Calcium Magnesium Ethyl Alcohol 08/08/18 23:40 WBC RBC Hgb Hct MCV MCH MCHC RDW Plt Count MPV PT INR APTT Sodium 141 Potassium 3.2 L Chloride 104 Carbon Dioxide 26.0 Anion Gap 11.0 BUN 23 H Creatinine 1.19 Estimated GFR/1.73 m2 >= 60.00 Glucose 152 H Calcium 8.8 Magnesium 2.0 Ethyl Alcohol < 3.0
--- NOTE | 2018-08-28 17:55 | ZIOP_ITS ---
DATE OF DICTATION: August 28, 2018. MONITOR IN PLACE: 13 days, 13 hours, August 092017. Baseline rhythm sinus. Rare single PAC's. One burst of supraventricular tachycardia, 5-beat duration, at 120 bpm. Rare single premature ventricular contractions. No ventricular tachycardia. No bradycardia or block. One triggered event during sinus rhythm at 86 bpm. No symptoms. Average heart rate sinus rhythm, 71 bpm, range 43-141 bpm.
== END 2018-08-09 17:38 | disposition home or self-care (01) ==
LOC: ER 08-09 01:31 → MS 08-09 11:09
PROVIDERS: Admitting Provider General Practice; Emergency Provider Emergency Medicine; PCP Nurse Practitioner; Visit Provider Internal Medicine
DX: I10 Essential (primary) hypertension; G45.9 Transient cerebral ischemic attack, unspecified; I34.0 Nonrheumatic mitral (valve) insufficiency; R29.2 Abnormal reflex
CPT/HCPCS: 36415; 70496; 70498; 80048; 82947; 85027; 93005; 93225; 96360; 99217; 99222; 99255; 99291; 70450; 70551; 80320; 83735; 85610; 85730; 93010; 93306; 99236; G0378; J3490

== ENCOUNTER 2018-08-21 07:19 | Outpatient (CLI) | payer OTHER, SELFPAY ==
[2018-08-21 08:50] LABS: Anion Gap 8.8 mmol/L (3-11); BUN 20 mg/dL (7-18); CO2 28.2 mmol/L (21.0-32.0); CREATININE 1.06 mg/dL (0.70-1.30); Calcium 8.7 mg/dL (8.5-10.1); Chloride 106 mmol/L (98-107); Cholesterol 91 mg/dL (50-200); Glucose 103 mg/dL (70-100); HDL Cholesterol 35 mg/dL (40-60); LDL CHOLESTEROL 48 mg/dL (<100); Potassium 4.2 mmol/L (3.5-5.1); Sodium 143 mmol/L (136-145); Triglyceride 51 mg/dL (30-150)
== END 2018-08-21 07:39 ==
PROVIDERS: PCP Nurse Practitioner; Visit Provider Nurse Practitioner
DX: I10 Essential (primary) hypertension (principal)
CPT/HCPCS: 36415; 80048; 80061; 83721

== ENCOUNTER 2019-07-06 07:05 | Outpatient (CLI) | payer OTHER, SELFPAY ==
[2019-07-06 09:19] LABS: ALT 26 U/L (16-63); AST 14 U/L (15-37); Albumin 4.1 g/dL (3.4-5.0); Alkaline Phosphatase 81 U/L (46-116); Anion Gap 9.2 mmol/L (3-11); BUN 17 mg/dL (7-18); Bilirubin, Total 0.7 mg/dL (0.2-1.0); CO2 27.8 mmol/L (21.0-32.0); CREATININE 1.18 mg/dL (0.70-1.30); Calcium 8.8 mg/dL (8.5-10.1); Calculated LDL 98 mg/dL; Chloride 105 mmol/L (98-107); Cholesterol 150 mg/dL (50-200); Glucose 99 mg/dL (70-100); HDL Cholesterol 35 mg/dL (40-60); Potassium 4.7 mmol/L (3.5-5.1); Sodium 142 mmol/L (136-145); Total Protein 7.1 g/dL (6.4-8.2); Triglyceride 88 mg/dL (30-150)
== END 2019-07-06 07:25 ==
PROVIDERS: PCP Nurse Practitioner; Visit Provider Nurse Practitioner
DX: I10 Essential (primary) hypertension (principal); R73.01 Impaired fasting glucose; G45.9 Transient cerebral ischemic attack, unspecified
CPT/HCPCS: 36415; 80053; 80061

== ENCOUNTER 2020-08-19 01:19 | Outpatient (CLI) | payer OTHER, SELFPAY ==
[2020-08-19 08:46] LABS: ALT 22 U/L (16-63); AST 15 U/L (15-37); Albumin 4.1 g/dL (3.4-5.0); Alkaline Phosphatase 71 U/L (46-116); Anion Gap 5.3 mmol/L (3-11); BUN 17 mg/dL (7-18); Bilirubin, Total 0.8 mg/dL (0.2-1.0); CO2 30.7 mmol/L (21.0-32.0); CREATININE 1.11 mg/dL (0.70-1.30); Calcium 8.9 mg/dL (8.5-10.1); Calculated LDL 94 mg/dL (<100); Chloride 105 mmol/L (98-107); Cholesterol 143 mg/dL (<200); Glucose 101 mg/dL (74-106); HDL Cholesterol 40 mg/dL (40-60); Potassium 4.5 mmol/L (3.5-5.1); Sodium 141 mmol/L (136-145); Total Protein 6.8 g/dL (6.4-8.2); Triglyceride 48 mg/dL (<150)
== END 2020-08-19 01:39 ==
PROVIDERS: PCP Nurse Practitioner; Visit Provider Nurse Practitioner
DX: I10 Essential (primary) hypertension (principal); E78.5 Hyperlipidemia, unspecified
CPT/HCPCS: 36415; 80053; 80061

== ENCOUNTER 2021-08-20 02:44 | Outpatient (CLI) | payer OTHER, SELFPAY ==
[2021-08-20 07:41] LABS: Abs Immature Grans 0.02 10^3/uL (0.0-0.06); Absolute Basophil Count 0.04 10^3/uL (0.0-0.2); Absolute Eosinophil Count 0.16 10^3/uL (0.0-0.7); Absolute Lymphocyte Count 1.84 10^3/uL (1.2-3.4); Absolute Monocyte Count 0.68 10^3/uL (0.1-0.8); Absolute Neutrophil Count 3.58 10^3/uL (1.2-6.7); Basophils % 0.6; Eosinophils % 2.5; HGB 14.7 g/dL (13.5-17.5); Immature Grans % 0.3; Lymphocytes % 29.1; MCH 30.2 pg (27.0-33.0); MCHC 34.2 % (32.0-36.0); MCV 88.5 fL (80-95); Monocytes % 10.8; Neutrophils % 56.7; Nucleated RBC 0 %; Platelet Count 247 10^3/uL (130-400); RBC 4.86 10^6/uL (4.36-5.78); RDW 12.6 % (11.8-14.1); WBC 6.32 10^3/uL (4.4-10.8)
[2021-08-20 08:54] LABS: ALT 30 U/L (16-63); AST 19 U/L (15-37); Alkaline Phosphatase 73 U/L (46-116); Anion Gap 7.9 mmol/L (3-11); BUN 18 mg/dL (7-18); Bilirubin, Total 0.7 mg/dL (0.2-1.0); CO2 30.1 mmol/L (21.0-32.0); CREATININE 1.2 mg/dL (0.70-1.30); Calcium 8.9 mg/dL (8.5-10.1); Calculated LDL 104 mg/dL (<100); Chloride 106 mmol/L (98-107); Cholesterol 155 mg/dL (<200); Glucose 101 mg/dL (74-106); HDL Cholesterol 40 mg/dL (40-60); Potassium 4.5 mmol/L (3.5-5.1); Sodium 144 mmol/L (136-145); Total Protein 6.9 g/dL (6.4-8.2); Triglyceride 57 mg/dL (<150)
== END 2021-08-20 02:45 | disposition home or self-care (01) ==
LOC: LBO 02:44
PROVIDERS: PCP Nurse Practitioner; Visit Provider Nurse Practitioner
DX: I10 Essential (primary) hypertension (principal); E78.5 Hyperlipidemia, unspecified; J45.909 Unspecified asthma, uncomplicated
CPT/HCPCS: 36415; 80053; 80061; 85025

== ENCOUNTER 2022-08-19 03:45 | Outpatient (CLI) | payer MEDICARE, SELFPAY ==
[2022-08-19 08:30] LABS: ALT 35 U/L (16-63); AST 18 U/L (15-37); Albumin 4.3 g/dL (3.4-5.0); Alkaline Phosphatase 70 U/L (46-116); Anion Gap 12.1 mmol/L (3-11); BUN 18 mg/dL (7-18); Bilirubin, Total 0.7 mg/dL (0.2-1.0); CO2 26.9 mmol/L (21.0-32.0); CREATININE 1.2 mg/dL (0.70-1.30); Calcium 8.9 mg/dL (8.5-10.1); Calculated LDL 86 mg/dL (<100); Chloride 105 mmol/L (98-107); Cholesterol 139 mg/dL (<200); Estimated GFR 67.11 (mL/min/1.73m2); Glucose 97 mg/dL (74-106); HDL Cholesterol 36 mg/dL (40-60); Potassium 4.1 mmol/L (3.5-5.1); Sodium 144 mmol/L (136-145); Total Protein 7.9 g/dL (6.4-8.2); Triglyceride 85 mg/dL (<150)
== END 2022-08-19 03:46 | disposition home or self-care (01) ==
LOC: LBO 03:45
PROVIDERS: PCP Nurse Practitioner; Visit Provider Nurse Practitioner
DX: E78.5 Hyperlipidemia, unspecified (principal); I10 Essential (primary) hypertension
CPT/HCPCS: 36415; 80053; 80061

== ENCOUNTER 2023-03-03 01:48 | Outpatient (CLI) | payer MEDICARE, SELFPAY ==
[2023-03-03 12:33] LABS: Hemoglobin A1C 5.5 % (<5.7)
[2023-03-03 12:59] LABS: ALT 28 U/L (16-63); AST 17 U/L (15-37); Albumin 4.4 g/dL (3.4-5.0); Alkaline Phosphatase 82 U/L (46-116); Anion Gap 6.6 mmol/L (3-11); BUN 16 mg/dL (7-18); Bilirubin, Total 0.6 mg/dL (0.2-1.0); CO2 30.4 mmol/L (21.0-32.0); CREATININE 1.2 mg/dL (0.70-1.30); Calcium 9.2 mg/dL (8.5-10.1); Calculated LDL 80 mg/dL (<100); Chloride 103 mmol/L (98-107); Cholesterol 150 mg/dL (<200); Glucose 94 mg/dL (74-106); HDL Cholesterol 46 mg/dL (40-60); Potassium 3.7 mmol/L (3.5-5.1); Sodium 140 mmol/L (136-145); Total Protein 7.7 g/dL (6.4-8.2); Triglyceride 123 mg/dL (<150)
[2023-03-04 11:59] LABS: Lyme Ab w Rflx to Lyme Confirm Negative (Negative)
[2023-03-07 16:11] LABS: Anaplasma phagocytophilum Negative (Negative); B. miyamotoi PCR Negative (Negative); Babesia divergens/MO-1 Negative (Negative); Babesia duncani Negative (Negative); Babesia microti Negative (Negative); Ehrlichia chaffeensis Negative (Negative); Ehrlichia ewingii/canis Negative (Negative); Ehrlichia muris eauclairensis Negative (Negative)
== END 2023-03-03 01:49 | disposition home or self-care (01) ==
LOC: LBO 01:49
PROVIDERS: PCP Nurse Practitioner; Visit Provider Nurse Practitioner
DX: I10 Essential (primary) hypertension (principal); E78.5 Hyperlipidemia, unspecified; R73.01 Impaired fasting glucose; W57.XXXA Bitten or stung by nonvenomous insect and other nonvenomous arthropods, initial encounter; T14.8XXA Other injury of unspecified body region, initial encounter
CPT/HCPCS: 36415; 80053; 80061; 87798; 83036; 86618

== ENCOUNTER 2025-04-05 08:08 | Outpatient (CLI) | payer MEDICARE, SELFPAY ==
[2025-04-05 07:41] LABS: Abs Immature Grans 0.01 10^3/uL (0.0-0.06); Absolute Basophil Count 0.02 10^3/uL (0.0-0.2); Absolute Eosinophil Count 0.06 10^3/uL (0.0-0.7); Absolute Lymphocyte Count 1.75 10^3/uL (1.2-3.4); Absolute Monocyte Count 0.43 10^3/uL (0.1-0.8); Absolute Neutrophil Count 2.98 10^3/uL (1.2-6.7); Basophils % 0.4 %; Eosinophils % 1.1 %; HCT 47.3 % (40.0-50.0); HGB 16.4 g/dL (13.5-17.5); Immature Grans % 0.2 %; Lymphocytes % 33.3 %; MCH 30.1 pg (27.0-33.0); MCHC 34.7 % (32.0-36.0); MCV 87 fL (80-95); MPV 9.2 fL (8.0-11.0); Monocytes % 8.2 %; Neutrophils % 56.8 %; Platelet Count 263 10^3/uL (130-400); RBC 5.44 10^6/uL (4.36-5.78); RDW 12.5 % (11.8-14.1); RDW-SD 39.6 fL; WBC 5.25 10^3/uL (4.4-10.8)
[2025-04-05 07:43] LABS: Bilirubin Negative (Negative); Blood Negative (Negative); Clarity Clear (Clear); Glucose Negative (Negative); Ketones Negative (Negative); Leukocyte Esterase Negative (Negative); Nitrite Negative (Negative); Urobilinogen 0.2 mg/dL (Up to 0.2); pH 6.5 (5-8)
[2025-04-05 08:39] LABS: Hemoglobin A1C 5.5 % (<5.7)
[2025-04-05 09:06] LABS: ALT 26 U/L (16-63); AST 20 U/L (15-37); Albumin 4.4 g/dL (3.4-5.0); Alkaline Phosphatase 71 U/L (46-116); Anion Gap 7.1 mmol/L (3-11); BUN 20 mg/dL (7-18); Bilirubin, Total 0.9 mg/dL (0.2-1.0); CO2 28.9 mmol/L (21.0-32.0); CREATININE 1.4 mg/dL (0.70-1.30); Calcium 9.2 mg/dL (8.5-10.1); Calculated LDL 83 mg/dL (<100); Chloride 104 mmol/L (98-107); Cholesterol 138 mg/dL (<200); Estimated GFR 54.75 (mL/min/1.73m2); Glucose 109 mg/dL (74-106); HDL Cholesterol 42 mg/dL (>or=40); Potassium 4.4 mmol/L (3.5-5.1); Sodium 140 mmol/L (136-145); Total Protein 7.3 g/dL (6.4-8.2); Triglyceride 68 mg/dL (<150)
[2025-04-05 20:01] LABS: PSA, Screening 1.9 ng/mL (<=4.5)
[2025-04-05 20:40] LABS: HBs Antibody, Quant <3.1 mIU/mL (See Note); Hep B Surface Ab Negative (See Note); Hepatitis B Core Antibody Negative (Negative); Hepatitis B Surface Antigen Negative (Negative)
[2025-04-05 20:41] LABS: HBs Antibody, Qual Negative (See Note); HBs Antibody, Quant <3.1 mIU/mL (See Note); Hepatitis B Core Antibody Negative (Negative); Hepatitis B surface Ag Negative (Negative); Hepatitis C Ab w Rflx HCV PCR Negative (Negative)
[2025-04-05 20:43] LABS: HIV-1/2 Ag & Ab Screen Negative (Negative)
== END 2025-04-05 08:09 | disposition home or self-care (01) ==
LOC: LBO 08:08
PROVIDERS: PCP Nurse Practitioner; Visit Provider Family Medicine
DX: D64.9 Anemia, unspecified (principal); Z13.9 Encounter for screening, unspecified; I10 Essential (primary) hypertension; Z12.5 Encounter for screening for malignant neoplasm of prostate; R30.0 Dysuria; Z11.4 Encounter for screening for human immunodeficiency virus [HIV]; K76.0 Fatty (change of) liver, not elsewhere classified; R73.09 Other abnormal glucose; Z11.59 Encounter for screening for other viral diseases
CPT/HCPCS: 36415; 80053; 80061; 84153; 86704; 86706; 86803; 87340; 87389; 81003; 83036; 84443; 85025

== ENCOUNTER → 2025-05-15 10:17 | Outpatient (BNVA) | payer MEDICARE, SELFPAY | PROVIDERS: PCP Nurse Practitioner; Referring Provider Nurse Practitioner; Visit Provider Physical Therapy Assistant | DX: Z12.11 Encounter for screening for malignant neoplasm of colon (principal) | CPT/HCPCS: S0285 ==

== ENCOUNTER 2025-05-30 06:59 | Day surgery (SDC) | payer MEDICARE, SELFPAY ==
[2025-05-30 07:09] VITALS: BP 162/86; PULSE 74; RESP 17; TEMP 36.3; O2SAT 98
[2025-05-30] MEDS: Lactated Ringers 1,000 ML 80 ML IV (07:48)
--- NOTE | 2025-05-30 07:56 | W.ANESPRE ---
General Info Date of Service Date Performed: 05/30/25 Height: 5 ft 8 in Weight: 83.3 kg Body Mass Index (BMI): 27.9 Surgical Procedure: Operation Date: 05/30/25 08:35 Proposed Procedure Side Surgeon p Colonoscopy Ying Cox MD Meds Allergies and Home Medications Allergies Allergy/AdvReac Type Severity Reaction Status Date / Time No Known Allergies Allergy Verified 05/30/25 07:16 Home Medication ?Medication ?Instructions ?Recorded aspirin 81 mg tablet,delayed 81 mg PO DAILY 01/26/13 release (Aspir-) amlodipine 5 mg tablet See Rx Instructions .Route 03/29/25 .COMPLEX #90 tabs pravastatin 10 mg tablet See Rx Instructions .Route 03/29/25 .COMPLEX #90 tabs bisacodyl 5 mg tablet,delayed 5 mg PO ONCE #4 tabs 05/15/25 release (Dulcolax (bisacodyl)) polyethylene glycol 3350 17 17 g PO ONCE #238 grams 05/15/25 gram/dose oral powder Current Visit Medications: Current Medications Generic Name Dose Route Start Last Admin Trade Name Elio PRN Reason Stop Dose Admin Ringer's Solution 1,000 mls @ 80 mls/hr 05/30/25 06:00 05/30/25 07:48 IV 05/30/25 23:59 80 mls/hr INFUSION PETRONA Administration IV Miscellaneous Supplies 1 each 05/30/25 06:00 Iv Access IV 05/30/25 23:59 DIRECTED PETRONA Sodium Biphosphate/Sodium Phosphate 133 ml 05/30/25 06:00 Na Phosphate Enema-Adult 133 Ml Btl NM 05/30/25 23:59 DIRECTED PETRONA Sodium Chloride 0 ml 05/30/25 06:00 Normal Saline Flush 10 Ml Syr IV 05/30/25 23:59 PRN PRN Sodium Chloride 0 ml 05/30/25 06:00 Normal Saline 10 Ml Vial IJ 05/30/25 23:59 DIRECTED PRN Sterile Water 0 ml 05/30/25 06:00 Water,Injection,Sterile 10 Ml Vial IJ 05/30/25 23:59 DIRECTED PRN PFSH Active Problems Active Problems: Problem Status Onset Code Encounter for screening colonoscopy for zui-ctow-ldnt patient Acute Z12.11 Encounter for HCV screening test for low risk patient Acute Z11.59 Screening for HIV without presence of risk factors Acute Z11.4 Fatty liver Acute K76.0 Rosacea Acute L71.9 Actinic keratosis Acute L57.0 Squamous cell carcinoma Acute Snoring Chronic R06.83 Other and unspecified hyperlipidemia Acute 10/21/11 E78.5 Low HDL (under 40) Acute 03/07/18 E78.6 Impaired fasting glucose Acute 10/21/11 R73.01 Hyperreflexia Acute R29.2 Hypertension Chronic I10 TIA (transient ischemic attack) Acute G45.9 Medical History Medical History 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 08/2005-Dr Lozano vertex of scalp 08/2014 Basal cell carcinoma L posterior parietal scalp 10/2018-Dr Lozano vertex of scalp-08/2014 HTN (hypertension) Surgical History Surgical History Skin Cancer Removal Colonoscopy - IV Sedation (06/02/15) Dr Martin/ w/ autumn Tobacco Smoking/Tobacco Use Status: Former Tobacco Use Passive smoking exposure: Yes Second hand exposure: Yes Alcohol Alcohol Intake: current Alcohol intake frequency: 0-2 drinks per day Substance Use Substance use: Never Substance use type: does not use Vital Signs and Lab Results Vital Signs Most Recent Vital Signs in EMR: Most Recent Vital Signs Temp Pulse Resp BP Pulse Ox 36.3 C L 74 17 162/86 H 98 05/30/25 07:09 05/30/25 07:09 05/30/25 07:09 05/30/25 07:09 05/30/25 07:09 Anesthesia Assessment and Plan Anesthesia History Personal History: No History of Anesthesia Complications Family History: No Family History of Anesthesia Complications Exercise Tolerance Exercise Tolerance: Metabolic Equivalents>4 Cardiac & Pulmonary Exam Cardiac Exam: Normal S1/S2 Heart Sounds Pulmonary Exam: Clear Bilateral Breath Sounds Implantable Cardiac Device Does patient have a Pacemaker or an ICD?: No Airway Exam Known Difficult Airway: No Mallampati Class: 3 Mouth Opening: Normal (> 3cm) Thyromental Distance: Greater than 3 cm Neck Range of Motion: Limited ROM Neck Circumference: Normal Teeth Condition: Normal Dentition ASA Classification ASA Score: ASA 2 Emergency Case?: No NPO Status NPO Status: NPO Clears >2 hours, Solids >8 hours Anesthesia Plan Resuscitation Status: Full Code Anesthesia Technique: General Anesthesia Airway Planned: Natural Airway Monitors Used: Standard Monitors Preoperative Comments:: 70 yo male for colo. Sig PMHx: HTN (amlodipine. 130/70-80 at home), TIA (2018, no longer on ASA/plavix), KOFI (snores, no CPAP) ,fatty liver, former smoker, occ EtOH. Occ GERD at home, treated with tums - diet related. ECHO: LVEF 65-70%, mild MR, PAS 49 mmhg.
[2025-05-30 08:00] VITALS: BMI 27.9
[2025-05-30 08:46] VITALS: BP 113/79; PULSE 73; RESP 14; TEMP 36.2; O2SAT 98
--- NOTE | 2025-05-30 08:54 | W.ANESPOSTOP ---
Postoperative Evaluation Date, Time and Location Date Performed: 05/30/25 Time Performed: 08:48 Patient Location: Day Surgery Unit Vital Signs Most Recent Imported Vital Signs: Most Recent Vital Signs Temp Pulse Resp BP Pulse Ox 36.2 C L 73 14 113/79 98 05/30/25 08:46 05/30/25 08:46 05/30/25 08:46 05/30/25 08:46 05/30/25 08:46 Pain Score Most Recent Pain Score: Most Recent Pain Score Pain Level 0 05/30/25 08:46 Assessment Mental Status: Awake (Alert & Oriented to Patient Baseline) Airway and Respiratory Function: Patent airway with normal (patient baseline) respiratory exam Cardiovascular Function: Hemodynamically Stable Hydration Status: Adequately Hydrated Nausea & Vomiting: No Nausea or Vomiting Pain: Pt. Denies Any Pain Peripheral Nerve Block: Patient did not receive a nerve block
--- NOTE | 2025-05-30 08:59 | W.PM.DSUDISC ---
Date of service: 05/30/25 Discharge Plan Disposition Patient Disposition: Home Condition: Stable Discharge Details Attending Provider: Ying Cox Primary Care Provider: Marylin Coleman Home Meds and New Rx's Prescriptions: Continued amlodipine 5 mg tablet See Rx Instructions .ROUTE .COMPLEX Qty: 90 3RF Dose Instruction: TAKE ONE TABLET BY MOUTH EVERY DAY TO LOWER BP. BELOW 140/90 Rx Instructions: TAKE ONE TABLET BY MOUTH EVERY DAY TO LOWER BP. BELOW 140/90 pravastatin 10 mg tablet See Rx Instructions .ROUTE .COMPLEX Qty: 90 0RF Dose Instruction: TAKE ONE TABLET BY MOUTH AT BEDTIME Rx Instructions: TAKE ONE TABLET BY MOUTH AT BEDTIME bisacodyl [Dulcolax (bisacodyl)] 5 mg tablet,delayed release (DR/EC) 5 mg PO ONCE Qty: 4 0RF Rx Instructions: Take per colonoscopy instructions provided by ordering providers office polyethylene glycol 3350 17 gram/dose powder 17 g PO ONCE Qty: 238 0RF Rx Instructions: Take per colonoscopy instructions provided by ordering providers office aspirin [Aspir-81] 81 MG tablet,delayed release (DR/EC) 81 mg PO DAILY Discharge Instructions Instructions: Diverticulosis, High-fiber diet Activity:: Activity as Tolerated Diet:: As Tolerated Discharge Orders Discharge Orders: Discharge Order (Routine); Ordered 05/30/25 Ordered By: Ying Cox DS: Diagnosis Discharge Diagnosis (1) Diverticulosis of sigmoid colon: Status: Acute Asessment and Plan: High fiber diet and/or daily fiber powder supplement recommended. (2) Screening for colorectal cancer: Status: Acute Asessment and Plan: Normal colonoscopy, no polyps, next colonoscopy due in 10 years.
--- NOTE | 2025-05-30 09:00 | W.COLOREPORT ---
Date of service: 05/30/25 Time of Service: 09:01 Colonoscopy Report Date of procedure: 05/30/25 Pre-op diagnosis general: Screening for colorectal cancer Post-op diagnosis procedure note: same (Diverticulosis of sigmoid colon) Procedure: Colonoscopy Anesthesia Type: MAC Estimated blood loss (mL): 0 Pathology: none sent Complications: None Disposition: same day Prep: Miralax/Dulcolax Procedure Description: Informed consent was obtained and the patient was taken to the procedure area. The patient was placed in left lateral decubitus position on the procedure table. Timeout was performed. Anesthesia was induced. A lubricated colonoscope was inserted through the anus and passed to the cecum. The cecum was identified by the ileocecal valve and the appendiceal orifice. The scope was then slowly withdrawn and the colonic and rectal mucosa examined.The scope was retroflexed in the anorectal junction examined. TI intubated and appears normal. No mass lesion, poyp, inflammatory change, or AVM seen. Sigmoid diverticulosis noted, small and large mouthed, moderate to severe. No evidence of diverticulitis. Grade 2 internal hemorrhoids without complication. Assessment and plan: Normal screening colonoscopy. Average risk patient. Next screening colonoscopy will be due in 10 years. High fiber diet and/or daily powdered fiber supplement recommended for diverticulosis.
[2025-05-30 09:16] VITALS: BP 127/79; PULSE 72; RESP 14; TEMP 36.5; O2SAT 95
== END 2025-05-30 09:30 | disposition home or self-care (01) ==
PROVIDERS: PCP Nurse Practitioner; Visit Provider Surgery
PROC: 0DJD8ZZ Inspection of Lower Intestinal Tract, Via Natural or Artificial Opening Endoscopic (ICD-10-PCS; CPT 45378; principal; 2025-05-30 08:30)
DX: Z12.11 Encounter for screening for malignant neoplasm of colon (principal); Z12.12 Encounter for screening for malignant neoplasm of rectum; K57.30 Diverticulosis of large intestine without perforation or abscess without bleeding; I10 Essential (primary) hypertension; G47.33 Obstructive sleep apnea (adult) (pediatric); K64.1 Second degree hemorrhoids
CPT/HCPCS: G0121; J2003; J2704